=== PATIENT | female | born 2000 | race Hispanic/Latino ===

== ENCOUNTER 2022-07-13 14:00 | Outpatient (CLI) | payer BC | END 2022-07-13 14:01 | disposition home or self-care (01) | LOC: SLEEPLAB 14:00 | PROVIDERS: ATTEND Internal Medicine Critical Care Medicine | DX: G47.33 Obstructive sleep apnea (adult) (pediatric) (principal); R06.83 Snoring; J45.909 Unspecified asthma, uncomplicated; F32.A Depression, unspecified; G47.00 Insomnia, unspecified; G47.10 Hypersomnia, unspecified | CPT/HCPCS: 95800 ==